=== PATIENT | male | born 1970 | race Asian ===

== ENCOUNTER 2020-10-29 14:26 | Emergency (ER) | payer OTHER ==
[2020-10-29 14:50] VITALS: BP 139/77; PULSE 70; TEMP 97.9; BMI 33.0
[2020-10-29] MEDS ORDERED: ACETAMINOPHEN 325 MG TABLET (FP) PO ONE (15:36)
[2020-10-29] MEDS ORDERED: ACETAMINOPHEN 325 MG TABLET (FP) ONE (15:41)
== END 2020-10-29 17:02 | disposition home or self-care (01) ==
LOC: JERFT 14:26
DX: S20.212A Contusion of left front wall of thorax, initial encounter (principal); Y04.0XXA Assault by unarmed brawl or fight, initial encounter; Y92.9 Unspecified place or not applicable
CPT/HCPCS: 71045-TC-FY; 99283-25